=== PATIENT | female | born 1940 | race Caucasian/White ===

== ENCOUNTER 2020-04-17 20:16 | Emergency (ER) | payer OTHER ==
[~2020-04-17] VITALS: Ht 162.6 cm; Wt 72.1 kg
[~2020-04-17 20:16] MED LIST: ALBU90OI61 INH; AMLO5 PO; ATOR20 PO; Aspir 8181 MG PO; CENTRUM SILVER1 EAC2; Calcium 600 +1 EAC1; Isosorbide Mono30 MG; LISI20; NITR.6SL; Nitrostat0.4 MG SL; PANT40 PO; POTA10T; QVAR7.3 GM INH; SERT50; VITAMIN D-32000 UNI1 PO; Vitamin B-121000 MCG
[2020-04-17] MEDS ORDERED: TRAM50 PO (23:06)
== END 2020-04-17 23:23 | disposition home or self-care (01) ==
LOC: ER 20:16
DX: S42.251A Displaced fracture of greater tuberosity of right humerus, initial encounter for closed fracture (principal); S42.211A Unspecified displaced fracture of surgical neck of right humerus, initial encounter for closed fracture; Z88.5 Allergy status to narcotic agent; Z79.899 Other long term (current) drug therapy; Z79.82 Long term (current) use of aspirin; W01.0XXA Fall on same level from slipping, tripping and stumbling without subsequent striking against object, initial encounter
CPT/HCPCS: 73030; 99283-25

== ENCOUNTER → 2023-12-12 | Outpatient (CLI) | payer OTHER ==
[~2023-12-12] MED LIST changes: +TRAM50 PO
== END | disposition home or self-care (01) ==
LOC: LAB SHORT 17:49 → LAB 17:49
DX: R10.30 Lower abdominal pain, unspecified (principal)
CPT/HCPCS: 87086

== ENCOUNTER 2025-07-08 09:51 | Inpatient (IN) | payer OTHER ==
[~2025-07-08] VITALS: Ht 162.6 cm; Wt 61.0 kg
[~2025-07-08 09:51] MED LIST changes: -Isosorbide Mono30 MG; +Isosorbide Mono30 MG PO; +NITR.4SL SL; -Nitrostat0.4 MG SL; -VITAMIN D-32000 UNI1 PO; +VITAMIN D31000 UNI1 PO
[2025-07-08] MEDS ORDERED: Ondansetron HCl 2 MG / ML 2ML Vial IV PRN (13:05)
[2025-07-08] MEDS ORDERED: FLU VACC TS2025(65UP)/MF59C/PF 45 MCG/0.5 ML SYRINGE IM SCH (13:05)
[2025-07-08] MEDS ORDERED: Magnesium Hydroxide Conc 10 ML UDC PO PRN (13:05)
[2025-07-08] MEDS ORDERED: Morphine Sulfate 4 MG/1 ML Injection IV PRN (13:50)
[2025-07-08] MEDS ORDERED: Albuterol HFA200 ACT/6.7 GM INH INH PRN (13:55)
[2025-07-08] MEDS ORDERED: NS 1,000 ML IV SCH (14:00)
[2025-07-08 18:48] VITALS: BP 144/84
[2025-07-08 19:31] VITALS: BP 139/64
[2025-07-08 22:59] VITALS: BP 109/50
--- NOTE | 2025-07-08 23:04 | NUR ---
TELE COMMUNICAION TELE CALLED THAT THE PATIENT HAD A 7 SECOND RUN OF SVT W/RATE OF 160'S. VSS, REMAINS ASYMPTOMATIC
[2025-07-08] MEDS ORDERED: NS 1,000 ML IV ONE (23:05)
[2025-07-09] VITALS (9 sets, daily range): BP systolic 112–140; BP diastolic 50–84
[2025-07-09] MEDS ORDERED: CeFAZolin Sodium 2,000 MG in NS 100 ML IV SCH ×2 (01:45→06:00)
--- NOTE | 2025-07-09 04:40 | NUR ---
SHIFT SUMMARY VSS, TELE READS SR 68 W/ BBB. THE PT HAS SLEPT WELL T/O THE NIGHT. SHE HAS REMAINED NPO SINCE 0000 IN PREPERATION FOR SURGERY. THE SURGICAL [place] HAS BEEN COMPLETED. T/O THE NIGHT THE PT HAS BEEN ABLE TO AMBULATE TO THE BATHROOM W/ 1 ASSIST, FWW, AND GT BELT. VOIDING W/O DIFFICULTY. IVF INFUSING PER EMAR. PT MEDICATED FOR PAIN PER EMAR WITH GOOD RESULTS. OVERALL NO ACUTE EVENTS NOTED. TO BRING IN MEDICATION LIST TO VERIFY MED REC. THE PATIENT IS CURRENTLY SLEEPING, IN NO DISTRESS, CALL LIGHT IN REACH
[2025-07-09 05:47] LABS: BASOPHILS ABSOLUTE AUTO 0.06 K/mm3 (0.00-0.23); BASOPHILS PERCENT AUTO 1 % (0-2); EOSINOPHILS ABSOLUTE AUTO 0.28 K/mm3 (0.00-0.68); EOSINOPHILS PERCENT AUTO 3 % (0-6); Hematocrit 38.4 % (33.0-51.0); Hemoglobin 12.5 g/dL (11.5-16.0); IMMATURE GRAN ABSOLUTE AUTO 0.03 K/mm3 (0.00-0.10); IMMATURE GRAN PERCENT AUTO 0 % (0-1); LYMPHOCYTES ABSOLUTE AUTO 1.48 K/mm3 (0.84-5.20); LYMPHOCYTES PERCENT AUTO 16 % (21-46); MONOCYTES ABSOLUTE AUTO 0.70 K/mm3 (0.16-1.47); MONOCYTES PERCENT AUTO 8 % (4-13); Mean Corpuscular HGB Conc 32.6 g/dL (31.5-36.5); Mean Corpuscular Volume 89 fL (80-100); NEUTROPHILS ABSOLUTE AUTO 6.51 K/mm3 (1.96-9.15); NEUTROPHILS PERCENT AUTO 72 % (41-73); NRBC ABSOLUTE 0.00 K/mm3 (0.00-0.02); NRBC Auto 0.0 /100 WBC (0.0-0.2); Platelet Count 304 K/mm3 (150-400); RDW Coefficient Variation 12.8 % (11.7-14.2); RDW Standard Deviation 41.7 fL (35.1-46.3)
[2025-07-09] MEDS ORDERED: Ropivacaine 0.5% HCl/Pf 123.125 MG,EPINEPHrine HCL 0.25 MG,Ketorolac Tromethamine 15 MG... INFIL SCH (06:00)
[2025-07-09] MEDS ORDERED: Tranexamic Acid 100 ML IV SCH (06:00)
[2025-07-09 06:15] LABS: Anion Gap 9.0 mmol/L (3-11); Blood Urea Nitrogen 13.0 mg/dL (8-24); CO2, Blood 24.0 mmol/L (21-32); Calcium, Blood 9.2 mg/dL (8.5-10.1); Chloride, Blood 108.0 mmol/L (98-108); Creatinine, Blood 0.59 mg/dL (0.40-1.00); Glucose, Blood 86.0 mg/dL (70-99); Potassium, Blood 3.7 mmol/L (3.5-5.5); Sodium, Blood 137.0 mmol/L (136-145)
[2025-07-09] MEDS ORDERED: Isosorbide Mononitrate 30 MG TABCR PO SCH (09:00)
[2025-07-09] MEDS ORDERED: ROSUVASTATIN CAL5 MG PO (10:10)
[2025-07-09] MEDS ORDERED: B-12500 MC2 PO (10:12)
[2025-07-09] MEDS ORDERED: ASCO500 PO (10:12)
[2025-07-09] MEDS ORDERED: PRESERVISION A1 EAC4 PO (10:13)
[2025-07-09] MEDS ORDERED: FentaNYL Citrate 50 MCG/ML 2 ML Injection ONE ×4 (11:33→15:44)
[2025-07-09] MEDS ORDERED: Ondansetron HCl 2 MG / ML 2ML Vial IV PRN ×2 (12:45→14:45)
[2025-07-09] MEDS ORDERED: Magnesium Hydroxide Conc 10 ML UDC PO PRN (12:45)
[2025-07-09] MEDS ORDERED: HYDROmorphone HCl/Pf 1MG SYR IV PRN (12:45)
[2025-07-09] MEDS ORDERED: Naloxone HCl 0.4MG / ML 1ML Vial IV PRN (12:45)
[2025-07-09] MEDS ORDERED: CeFAZolin Sodium 2,000 MG VIAL ONE (12:53)
--- NOTE | 2025-07-09 13:19 | NUR ---
History, Chart, Medications and Allergies reviewed before start of procedure. Lungs clear T/O to Auscultation. Patient confirms NPO status and agrees with scheduled surgery. Pre-Op teaching done. Pt verbalizes understanding.
[2025-07-09] MEDS ORDERED: Ketorolac Tromethamine 15mg Vial IV PRN (13:55)
[2025-07-09] MEDS ORDERED: Dexamethasone Sod Phos 10 MG/ML 1ML VIAL ONE (14:08)
[2025-07-09] MEDS ORDERED: Ondansetron HCl 2 MG / ML 2ML Vial ONE ×2 (14:08→15:47)
[2025-07-09] MEDS ORDERED: Labetalol HCL 5 MG/ML 4ML Injection (Single Dose) ONE (14:24)
[2025-07-09] MEDS ORDERED: Labetalol HCL 5 MG/ML 4ML Injection (Single Dose) IV PRN (14:45)
[2025-07-09] MEDS ORDERED: FentaNYL Citrate 50 MCG/ML 2 ML Injection IV PRN ×2 (14:45)
[2025-07-09] MEDS ORDERED: Sugammadex Sodium 200 MG/2ML SDV (100 MG/ML) ONE (14:59)
--- NOTE | 2025-07-09 17:53 | NUR ---
SHIFT SUMMARY S/P L HIP FX REPAIR. A&O x4, VSS. TOLERATING FOOD & FLUIDS WELL. L HIP w/TELFA & TEGADERM, NO DRAINAGE. PAIN CONTROLLED WELL PER EMAR. MEDICATED FOR NAUSEA - STATES RELIEF FOLLOWING. CURRENTLY RESTING IN BED w/CALL LIGHT WITHIN REACH.
[2025-07-09] MEDS ORDERED: Isosorbide Mononitrate 60 MG TABCR PO SCH (21:00)
[2025-07-10] VITALS (8 sets, daily range): BP systolic 98–116; BP diastolic 50–61
[2025-07-10 04:21] LABS: BASOPHILS ABSOLUTE AUTO 0.02 K/mm3 (0.00-0.23); BASOPHILS PERCENT AUTO 0 % (0-2); EOSINOPHILS ABSOLUTE AUTO 0.00 K/mm3 (0.00-0.68); EOSINOPHILS PERCENT AUTO 0 % (0-6); Hematocrit 31.8 % (33.0-51.0); Hemoglobin 10.4 g/dL (11.5-16.0); IMMATURE GRAN ABSOLUTE AUTO 0.05 K/mm3 (0.00-0.10); IMMATURE GRAN PERCENT AUTO 0 % (0-1); LYMPHOCYTES ABSOLUTE AUTO 0.75 K/mm3 (0.84-5.20); LYMPHOCYTES PERCENT AUTO 5 % (21-46); MONOCYTES ABSOLUTE AUTO 0.97 K/mm3 (0.16-1.47); MONOCYTES PERCENT AUTO 7 % (4-13); Mean Corpuscular HGB Conc 32.7 g/dL (31.5-36.5); Mean Corpuscular Volume 88 fL (80-100); NEUTROPHILS ABSOLUTE AUTO 12.17 K/mm3 (1.96-9.15); NEUTROPHILS PERCENT AUTO 87 % (41-73); NRBC ABSOLUTE 0.00 K/mm3 (0.00-0.02); NRBC Auto 0.0 /100 WBC (0.0-0.2); Platelet Count 257 K/mm3 (150-400); RDW Coefficient Variation 12.8 % (11.7-14.2); RDW Standard Deviation 41.1 fL (35.1-46.3)
[2025-07-10 04:50] LABS: Anion Gap 9.0 mmol/L (3-11); Blood Urea Nitrogen 15.0 mg/dL (8-24); CO2, Blood 24.0 mmol/L (21-32); Calcium, Blood 8.7 mg/dL (8.5-10.1); Chloride, Blood 105.0 mmol/L (98-108); Creatinine, Blood 0.57 mg/dL (0.40-1.00); Glucose, Blood 156.0 mg/dL (70-99); Magnesium, Blood 1.9 mg/dL (1.6-2.4); Potassium, Blood 4.2 mmol/L (3.5-5.5); Sodium, Blood 134.0 mmol/L (136-145)
--- NOTE | 2025-07-10 05:12 | NUR ---
NOC SUMMARY- PT PAIN MANAGED WELL. PT VOIDING AND AMBULATORY VIA FFW/ GB. PT HAS BEEN RESTING IN NO DISTRESS. PT DRESSING C/D/I. NO EVENTS REPORTED BY TELE. PT TOLERATING PO FLUIDS. CALL LIGHT IN REACH.
[2025-07-10] MEDS ORDERED: Trimethoprim/Sulfamethoxazole DS Tab PO SCH (09:00)
--- NOTE | 2025-07-10 13:35 | NUR ---
Pt. is awake in bed and welcomes my visit. Facilitated a lengthy life review and listened with interest and empathy. Considered matters of the impact of aging has had on the Pt. and how it has changed her life perspective. Pt. displayed evidence of being open and transparent. Pt. verbalized that she has had wonderful care and couldn't be happier during this admission. Pt. 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
[2025-07-10 16:15] LABS: Ferritin, Serum 324.0 ng/mL (8-252); Total Iron Binding Capacity 207.0 ug/dL (250-450)
--- NOTE | 2025-07-10 17:53 | NUR ---
SUMMARY NO ACUTE CHANGES THIS SHIFT. VSS - SR BB ON TELE WITH ONE SELF LIMITING <10SEC RUN OF SVT - PT ASYMPTOMATIC. ON RA. POSTERIOR HIP DRESSING CDI - PRECAUTIONS IN PLACE, ADHERENCE MANDATORY - PT HAS FOLLOWED THIS WELL. PT HAS BEEN UP TO CHAIR OR AMBULATING OFF AND ON T/O SHIUFT, NOW RESTING BACK IN BED. STATES SOME HESITATION REGARDING DC TOMORROW BUT THIS ONLY HAPPENS WHEN PAIN GETS >7, OTHERWISE, PT PLEASANT,COOPERATIVE, AND HAPPY WITH PROGRESS. USING CALL LIGHT APPROPRIATELY. VOIDING WELL. TOLERATING FOOD WELL. PLAN FOR DC W/ HH.
[2025-07-11 03:38] VITALS: BP 126/49
--- NOTE | 2025-07-11 03:39 | NUR ---
SHIFT SUMMARY PT HAS RESTED T/O THE NIGHT. PT REPORTS MINIMAL PAIN, UP AMBULATING AND VOIDING. DRESSING C/D/I TO SURGICAL SITE. VITALS STABLE. AT 0151 PT HAD 11 BEAT RUN OF SVT. NOT NEW FOR PT, PT HAS HAD PRIOR RUNS OF SVT WHILE ON TELE. AND PT HAD A RECENT EKG WITH NO ACUTE FINDINGS. DURING THE TIME OF THE EVENT, THIS RN WAS AT [facility]UN[facility]. SOFTWARE QUALITY TEST ENGINEER ROUNDED ON PT AND FOUND HER RESTING IN BED WITHOUT DISTRESS. VITALS STABLE, BED IN LOWEST POSITION, CALL LIGHT WITHIN REACH.
[2025-07-11 05:06] LABS: BASOPHILS ABSOLUTE AUTO 0.05 K/mm3 (0.00-0.23); BASOPHILS PERCENT AUTO 0 % (0-2); EOSINOPHILS ABSOLUTE AUTO 0.19 K/mm3 (0.00-0.68); EOSINOPHILS PERCENT AUTO 2 % (0-6); Hematocrit 34.5 % (33.0-51.0); Hemoglobin 11.2 g/dL (11.5-16.0); IMMATURE GRAN ABSOLUTE AUTO 0.03 K/mm3 (0.00-0.10); IMMATURE GRAN PERCENT AUTO 0 % (0-1); LYMPHOCYTES ABSOLUTE AUTO 1.41 K/mm3 (0.84-5.20); LYMPHOCYTES PERCENT AUTO 12 % (21-46); MONOCYTES ABSOLUTE AUTO 0.91 K/mm3 (0.16-1.47); MONOCYTES PERCENT AUTO 8 % (4-13); Mean Corpuscular HGB Conc 32.5 g/dL (31.5-36.5); Mean Corpuscular Volume 89 fL (80-100); NEUTROPHILS ABSOLUTE AUTO 9.25 K/mm3 (1.96-9.15); NEUTROPHILS PERCENT AUTO 78 % (41-73); NRBC ABSOLUTE 0.00 K/mm3 (0.00-0.02); NRBC Auto 0.0 /100 WBC (0.0-0.2); Platelet Count 255 K/mm3 (150-400); RDW Coefficient Variation 13.2 % (11.7-14.2); RDW Standard Deviation 42.5 fL (35.1-46.3)
[2025-07-11 05:35] LABS: Anion Gap 11.0 mmol/L (3-11); Blood Urea Nitrogen 15.0 mg/dL (8-24); CO2, Blood 22.0 mmol/L (21-32); Calcium, Blood 9.1 mg/dL (8.5-10.1); Chloride, Blood 100.0 mmol/L (98-108); Creatinine, Blood 0.68 mg/dL (0.40-1.00); Glucose, Blood 73.0 mg/dL (70-99); Potassium, Blood 3.7 mmol/L (3.5-5.5); Sodium, Blood 129.0 mmol/L (136-145)
[2025-07-11 07:19] VITALS: BP 128/48
[2025-07-11] MEDS ORDERED: Magnesium Hydroxide Conc 10 ML UDC PO PRN (08:55)
[2025-07-11 11:20] LABS: Source, Urine Clean Catch
[2025-07-11 11:31] VITALS: BP 119/63
--- NOTE | 2025-07-11 11:36 | NUR ---
HAND FLATWORK FINISHER REPORTS HR IN THE 180s. PT SITTING IN CHAIR UPON ENTERING ROOM. PT ASYMPTOMATIC. VS TAKEN AND STABLE. HAND FLATWORK FINISHER REPORTS HR SUSTAINED 170s FOR APPROX 3 MINUTES AND IS TRENDING DOWN TO THE 100s. NOTIFIED PRIMARY RN CHAD.
[2025-07-11 11:44] LABS: Bilirubin, Urine Neg (Neg); Color, Urine Yellow (P-Yellow); Glucose Qualitative, Urine Neg (Neg); Ketones, Urine Neg (Neg); Leukocyte Esterase, Urine Neg (Neg); Protein, Urine Neg (Neg); Specific Gravity, Urine 1.010 (1.003-1.022); Urobilinogen, Urine NORM (Normal)
[2025-07-11 11:58] LABS: Red Blood Cells, Urine 0-2 /hpf (0-2); White Blood Cells, Urine 0-2 /hpf (0-5)
[2025-07-11] MEDS ORDERED: OXAYDO5 M1 PO (14:54)
[2025-07-11] MEDS ORDERED: ACET325 PO (14:59)
[2025-07-11 15:00] VITALS: BP 122/51
[2025-07-11] MEDS ORDERED: FERSU300 PO (15:01)
[2025-07-11] MEDS ORDERED: XARELTO20 MG PO (15:02)
[2025-07-11] MEDS ORDERED: SULTRIDS PO (15:08)
--- NOTE | 2025-07-11 17:30 | NUR ---
DISCHARGE PT DISCHARGED VIA WHEELCHAIR WITH . LEFT WITH ALL BELONGINGS. L HIP DRESSING CHANGED DUE TO SMALL SS DRAINAGE. ALL DISCHARGE INSTRUCTIONS, PHYSICAL PRESCRIPTION FOR OXYCODONE, AND POSTERIOR HIP PRECAUTIONS REVIEWED WITH PT. VERBALIZES UNDERSTANDING. IVS REMOVED AND PT LEFT UNIT AROUND 1600
== END 2025-07-11 16:45 | disposition home health service (06) | DRG 522 ==
LOC: ER 09:51 → SURS 13:01
PROVIDERS: Orthopaedic Surgery; ADMIT Student in an Organized Health Care Education/Training Program
PROC: 3E02340 Introduction of Influenza Vaccine into Muscle, Percutaneous Approach (ICD-10-PCS; 2025-07-08)
PROC: 3E03329 Introduction of Other Anti-infective into Peripheral Vein, Percutaneous Approach (ICD-10-PCS; 2025-07-09)
PROC: 0SRS0J9 Replacement of Left Hip Joint, Femoral Surface with Synthetic Substitute, Cemented, Open Approach (ICD-10-PCS; principal; 2025-07-09 14:00)
DX: S72.115A Nondisplaced fracture of greater trochanter of left femur, initial encounter for closed fracture (principal); J45.909 Unspecified asthma, uncomplicated; K21.9 Gastro-esophageal reflux disease without esophagitis; Z66 Do not resuscitate; I10 Essential (primary) hypertension; F10.10 Alcohol abuse, uncomplicated; I25.10 Atherosclerotic heart disease of native coronary artery without angina pectoris; I35.0 Nonrheumatic aortic (valve) stenosis; Z79.51 Long term (current) use of inhaled steroids; Z79.899 Other long term (current) drug therapy; Z23 Encounter for immunization; Z79.82 Long term (current) use of aspirin; Z88.5 Allergy status to narcotic agent; Z98.41 Cataract extraction status, right eye; Z98.42 Cataract extraction status, left eye; Z90.710 Acquired absence of both cervix and uterus; Z90.721 Acquired absence of ovaries, unilateral; Z98.890 Other specified postprocedural states; Z86.73 Personal history of transient ischemic attack (TIA), and cerebral infarction without residual deficits; Z86.79 Personal history of other diseases of the circulatory system; W19.XXXA Unspecified fall, initial encounter
CPT/HCPCS: 36415; 72100; 72170; 72192; 80048; 81001; 82306; 82607; 82728; 82746; 83540; 83550; 83735; 85025; 93005; 93010; 93971; 94760; 97116; 97162; 97165; 97530; 97535; 99285-25; A9270; C1713; C1776; J0166; J0690; J0735; J1100; J1171; J1885; J2270; J2405; J2704; J2795; J3010; J7030; J7120